=== PATIENT | female | born 1945 | race Caucasian/White ===

== ENCOUNTER → 2018-02-10 | Outpatient (CLI) | payer MEDICARE ==
--- NOTE | 2018-02-11 14:18 | MM ---
Reason for exam: screening (asymptomatic). Last mammogram was performed 2 years ago. History: Patient is postmenopausal and has history of other cancer at age 34. Family history of breast cancer in maternal aunt at age 60. Benign excisional biopsy, July 27, 2002. Benign excisional biopsy of the right breast, 1993. Excisional biopsy of the left breast. Took estrogen for 7 years beginning at age 53. Took progesterone for 7 years beginning at age 53. Physical Findings: A clinical breast exam by your physician is recommended on an annual basis and results should be correlated with mammographic findings. MG 3D Screening Mammo W/Cad Bilateral CC and MLO view(s) were taken. Prior study comparison: February 07, 2016, bilateral MG 3d screening mammo w/cad. February 02, 2015, bilateral MG screening mammo w CAD. There are scattered fibroglandular densities. Finding #1: There is a new 11 mm oval lobular mass in the upper quadrant, anterior position of the left breast. Finding #2: There are typically benign round, regional calcifications in the right breast. New finding and increase in number of calcifications but benign morphology since February 07, 2016 and February 02, 2015. ASSESSMENT: Incomplete: need additional imaging evaluation, BI-RAD 0 RECOMMENDATION: Ultrasound of the left breast. [facility] will attempt to contact patient to return for ultrasound.
== END | disposition home or self-care (01) ==
LOC: RADMAMWWP 14:34
PROVIDERS: ATTEND Internal Medicine
DX: Z12.31 Encounter for screening mammogram for malignant neoplasm of breast (principal)
CPT/HCPCS: 77063; 77067

== ENCOUNTER → 2018-02-13 | Outpatient (CLI) | payer MEDICARE ==
--- NOTE | 2018-02-13 15:03 | USB ---
Reason for exam: additional evaluation requested from abnormal screening. History: Patient is postmenopausal and has history of other cancer at age 34. Family history of breast cancer in maternal aunt at age 60. Benign excisional biopsy, July 27, 2002. Benign excisional biopsy of the right breast, 1993. Excisional biopsy of the left breast. Took estrogen for 7 years beginning at age 53. Took progesterone for 7 years beginning at age 53. Physical Findings: Nurse did not find any significant physical abnormalities on exam. US Breast Workup Limited LT Technologist: Deisy Randhawa RT (R)(M) Left limited breast ultrasound including focal area of concern, retroareolar and axilla demonstrates a 6 x 4 x 3mm oval, cystic lesion at 11 o'clock and a 11 x 6 x 7mm cystic cluster at 11 o'clock, multiple images demonstrate increase through transmission. These results were verbally communicated with the patient and result sheet given to the patient on 02/13/18. ASSESSMENT: Benign, BI-RAD 2 RECOMMENDATION: Return to routine screening mammogram schedule for both breasts.
== END | disposition home or self-care (01) ==
LOC: RADUSWWP 12:03
PROVIDERS: ATTEND Internal Medicine
DX: R92.8 Other abnormal and inconclusive findings on diagnostic imaging of breast (principal)

== ENCOUNTER → 2019-02-09 | Outpatient (CLI) | payer MEDICARE ==
--- NOTE | 2019-02-10 00:10 | XR ---
EXAMINATION TYPE: XR chest 2V DATE OF EXAM: 02/09/2019 COMPARISON: None HISTORY: 74-year-old female with cough TECHNIQUE: Frontal and lateral views FINDINGS: Heart borderline to mildly enlarged. Mild diffuse interstitial prominence is chronic appearance. No c onsolidation or pleural effusion. IMPRESSION: Borderline to mild cardiomegaly. Chronic appearing changes, possible bronchitis or asthma. Otherwise, no acute process seen.
== END | disposition home or self-care (01) ==
LOC: RADXRYALE 14:44
PROVIDERS: ATTEND Internal Medicine
DX: I51.7 Cardiomegaly (principal)
CPT/HCPCS: 71046

== ENCOUNTER → 2019-02-19 | Outpatient (CLI) | payer MEDICARE ==
--- NOTE | 2019-02-20 10:48 | MM ---
Reason for exam: screening (asymptomatic). Last mammogram was performed 1 year ago. History: Patient is postmenopausal and has history of other cancer at age 34. Family history of breast cancer in maternal aunt at age 60. Benign excisional biopsy, July 27, 2002. Benign excisional biopsy of the right breast, 1993. Excisional biopsy of the left breast. Took estrogen for 7 years beginning at age 53. Took progesterone for 7 years beginning at age 53. Physical Findings: A clinical breast exam by your physician is recommended on an annual basis and results should be correlated with mammographic findings. MG 3D Screening Mammo W/Cad Bilateral CC and MLO view(s) were taken. Prior study comparison: February 10, 2018, bilateral MG 3d screening mammo w/cad. February 07, 2016, bilateral MG 3d screening mammo w/cad. There are scattered fibroglandular densities. No significant changes when compared with prior studies. ASSESSMENT: Benign, BI-RAD 2 RECOMMENDATION: Routine screening mammogram of both breasts in 1 year.
== END | disposition home or self-care (01) ==
LOC: RADMAMWWP 14:39
PROVIDERS: ATTEND Internal Medicine
DX: Z12.31 Encounter for screening mammogram for malignant neoplasm of breast (principal)
CPT/HCPCS: 77063; 77067

== ENCOUNTER 2019-04-03 10:55 | Emergency (ER) | payer MEDICARE ==
[2019-04-03 11:05] VITALS: RESP 18; TEMP 97.9
[2019-04-03] MEDS ORDERED: SODIUM CHLORIDE 0.9% 1,000 ML IV STA (11:20)
[2019-04-03] MEDS ORDERED: KETOROLAC 30 MG/ML 1 ML VIAL IVP STA (11:20)
[2019-04-03] MEDS ORDERED: ONDANSETRON 4 MG/2 ML VIAL IVP STA (11:20)
--- NOTE | 2019-04-03 11:26 | ED ---
Abdominal Pain HPI - General Chief Complaint: Abdominal Pain Stated Complaint: Vomiting, side pain Time Seen by Provider: 04/03/19 11:07 Source: patient Mode of arrival: ambulatory Limitations: no limitations - History of Present Illness Initial Comments: Patient is a 74-year-old female with past medical history of COPD and hypertension, presenting to the emergency Department with complaints of left- sided abdominal pain, nausea, vomiting since this morning. Patient states she woke up this morning feeling fine and then had a sudden onset of left-sided abdominal pain as well as dry heaving. Patient admits to prior history of 2 C- sections and cholecystectomy. Patient states the pain is sharp, radiating into the left lower quadrant and groin area. Patient states she has never felt this pain before. Patient states history of kidney stones. Patient denies fever, chills, diarrhea. Patient's last bowel movement this morning and was normal. P atient denies urinary complaints at this time. Patient denies any other complaints. Upon arrival to ER, BP elevated at 187/96, afebrile. - Related Data Home Medications Medication Instructions Recorded Confirmed Albuterol Sulfate [Proair Hfa] 1 - 2 puff INHALATION RT-Q6H PRN 04/18/16 04/18/16 Aspirin EC [Ecotrin Low Dose] 81 mg PO DAILY 04/18/16 04/18/16 Atenolol [Tenormin] 50 mg PO DAILY 04/18/16 04/18/16 Atorvastatin [Lipitor] 20 mg PO DAILY 04/18/16 04/18/16 Levothyroxine Sodium [Synthroid] 150 mcg PO DAILY 04/18/16 04/18/16 Lisinopril [Prinivil] 5 mg PO DAILY 04/18/16 04/18/16 Nitroglycerin Sl Tabs [Nitrostat] 0.4 mg SUBLINGUAL Q5M PRN 04/18/16 04/18/16 Sertraline [Zoloft] 50 mg PO DAILY 04/18/16 04/18/16 Previous Rx's Medication Instructions Recorded Ketorolac [Toradol] 10 mg PO Q8HR #15 tab 04/03/19 Ondansetron Odt [Zofran Odt] 4 mg PO Q8HR PRN #10 tab 04/03/19 Tamsulosin [Flomax] 0.4 mg PO DAILY #7 cap 04/03/19 Allergies Allergy/AdvReac Type Severity Reaction Status Date / Time levofloxacin [From Levaquin] Allergy Unknown Verified 04/03/19 11:03 Review of Systems ROS Statement: Those systems with pertinent positive or pertinent negative responses have been documented in the HPI. ROS Other: All systems not noted in ROS Statement are negative. Past Medical History Past Medical History: COPD, Hypertension, Sleep Apnea/CPAP/BIPAP History of Any Multi-Drug Resistant Organisms: None Reported Past Surgical History: Section, Cholecystectomy, Orthopedic Surgery Additional Past Surgical History / Comment(s): thyroidectomy Past Psychological History: Depression Smoking Status: Never smoker Past Alcohol Use History: Occasional Past Drug Use History: None Reported General Exam - General Exam Comments Initial Comments: GENERAL: Well-appearing, well-nourished and in mild distress secondary to pain. HEAD: Atraumatic, normocephalic. EYES: Pupils equal round and reactive to light, extraocular movements intact, sclera anicteric, conjunctiva are normal. ENT: TMs normal, nares patent, oropharynx clear without exudates. Moist mucous membranes. NECK: Normal range of motion, supple without lymphadenopathy or JVD. LUNGS: Breath sounds clear to auscultation bilaterally and equal. No wheezes rales or rhonchi. HEART: Regular rate and rhythm without murmurs, rubs or gallops. ABDOMEN: Tender to palpation in the left lower quadrant, left side. Soft, normoactive bowel sounds. No rebound. No masses appreciated. : Deferred EXTREMITIES: Normal range of motion, no pitting or edema. No clubbing or cyanosis. NEUROLOGICAL: Cranial nerves II through XII grossly intact. Normal speech, normal gait. PSYCH: Normal mood, normal affect. SKIN: Warm, Dry, normal turgor, no rashes or lesions noted. Limitations: no limitations Course Vital Signs 04/03/19 04/03/19 11:03 14:32 Temperature 97.9 F Pulse Rate 68 99 Respiratory 18 18 Rate Blood Pressure 187/96 159/75 O2 Sat by Pulse 100 96 Oximetry Medical Decision Making - Medical Decision Making Patient is a 74-year-old female here for left side pain radiating into the left groin was sudden onset times this morning. Patient also reports nausea and vomi ting. On exam patient has tenderness of the left side and left lower quadrant. BP was elevated upon arrival, afebrile. CBC shows white count 11.5. CMP is within normal limits. Lactic acid was 3.5. Most likely due to recent vomiting as well as severe pain. UA reveals > [address] is normal. [address] of the abdomen shows a 2 mm distal left ureteral stone with partial obstruction. Mild diverticulosis without diverticulitis. Patient was given fluids, pain medication and Zofran. Patient reported improvement. Discussed with patient to increase fluid intake. She'll be discharged home with Flomax, Toradol, Zofran. Patient will follow-up with PCP on Saturday if symptoms are not resolved. Return parameters were discussed with the patient she verbalized understanding. Patient is in agreement with this plan of care. Case discussed with Dr. Gonzalez. - Lab Data Result diagrams: 04/03/19 11:25 04/03/19 11:31 Lab Results 04/03/19 04/03/19 04/03/19 Range/Units 11:25 11:31 11:31 WBC 11.5 H (3.8-10.6) k/uL RBC 4.62 (3.80-5.40) m/uL Hgb 13.7 (11.4-16.0) gm/dL Hct 40.7 (34.0-46.0) % MCV 87.9 (80.0-100.0) fL MCH 29.7 (25.0-35.0) pg MCHC 33.8 (31.0-37.0) g/dL RDW 15.0 (11.5-15.5) % Plt Count 268 (150-450) k/uL Neutrophils % 92 % Lymphocytes % 5 % Monocytes % 2 % Eosinophils % 1 % Basophils % 0 % Neutrophils # 10.5 H (1.3-7.7) k/uL Lymphocytes # 0.6 L (1.0-4.8) k/uL Monocytes # 0.2 (0-1.0) k/uL Eosinophils # 0.1 (0-0.7) k/uL Basophils # 0.0 (0-0.2) k/uL Sodium 139 (137-145) mmol/L Potassium 3.9 (3.5-5.1) mmol/L Chloride 97 L (98-107) mmol/L Carbon Dioxide 26 (22-30) mmol/L Anion Gap 16 mmol/L BUN 22 H (7-17) mg/dL Creatinine 1.07 H (0.52-1.04) mg/dL Est GFR (CKD-EPI)AfAm 59 (>60 ml/min/1.73 sqM) Est GFR (CKD-EPI)NonAf 51 (>60 ml/min/1.73 sqM) Glucose 151 H (74-99) mg/dL Lactic Ac Sepsis Rflx Plasma Lactic Acid Melecio 3.5 H* (0.7-2.0) mmol/L Calcium 9.7 (8.4-10.2) mg/dL Total Bilirubin 0.5 (0.2-1.3) mg/dL AST 33 (14-36) U/L ALT 40 (9-52) U/L Alkaline Phosphatase 109 (38-126) U/L Total Protein 8.4 H (6.3-8.2) g/dL Albumin 5.0 (3.5-5.0) g/dL Amylase 62 (30-110) U/L Lipase 104 (23-300) U/L Urine Color Urine Appearance (Clear) Urine pH (5.0-8.0) Ur Specific [place] (1.001-1.035) Urine Protein (Negative) Urine Glucose (UA) (Negative) Urine Ketones (Negative) Urine Blood (Negative) Urine Nitrite (Negative) Urine Bilirubin (Negative) Urine Urobilinogen (<2.0) mg/dL Ur Leukocyte Esterase (Negative) Urine RBC (0-5) /hpf Urine WBC (0-5) /hpf Ur Squamous Epith Cells (0-4) /hpf Urine Mucus (None) /hpf 04/03/19 04/03/19 Range/Units 11:31 12:02 WBC (3.8-10.6) k/uL RBC (3.80-5.40) m/uL Hgb (11.4-16.0) gm/dL Hct (34.0-46.0) % MCV (80.0-100.0) fL MCH (25.0-35.0) pg MCHC (31.0-37.0) g/dL RDW (11.5-15.5) % Plt Count (150-450) k/uL Neutrophils % % Lymphocytes % % Monocytes % % Eosinophils % % Basophils % % Neutrophils # (1.3-7.7) k/uL Lymphocytes # (1.0-4.8) k/uL Monocytes # (0-1.0) k/uL Eosinophils # (0-0.7) k/uL Basophils # (0-0.2) k/uL Sodium (137-145) mmol/L Potassium (3.5-5.1) mmol/L Chloride (98-107) mmol/L Carbon Dioxide (22-30) mmol/L Anion Gap mmol/L BUN (7-17) mg/dL Creatinine (0.52-1.04) mg/dL Est GFR (CKD-EPI)AfAm (>60 ml/min/1.73 sqM) Est GFR (CKD-EPI)NonAf (>60 ml/min/1.73 sqM) Glucose (74-99) mg/dL Lactic Ac Sepsis Rflx Y Plasma Lactic Acid Melecio (0.7-2.0) mmol/L Calcium (8.4-10.2) mg/dL Total Bilirubin (0.2-1.3) mg/dL AST (14-36) U/L ALT (9-52) U/L Alkaline Phosphatase (38-126) U/L Total Protein (6.3-8.2) g/dL Albumin (3.5-5.0) g/dL Amylase (30-110) U/L Lipase (23-300) U/L Urine Color Yellow Urine Appearance Clear (Clear) Urine pH 6.5 (5.0-8.0) Ur Specific [place] 1.021 (1.001-1.035) Urine Protein Trace H (Negative) Urine Glucose (UA) Negative (Negative) Urine Ketones 1+ H (Negative) Urine Blood Moderate H (Negative) Urine Nitrite Negative (Negative) Urine Bilirubin Negative (Negative) Urine Urobilinogen <2.0 (<2.0) mg/dL Ur Leukocyte Esterase Negative (Negative) Urine RBC >182 H (0-5) /hpf Urine WBC 2 (0-5) /hpf Ur Squamous Epith Cells 1 (0-4) /hpf Urine Mucus Rare H (None) /hpf Disposition Clinical Impression: Abdominal pain, Renal stone Disposition: HOME SELF-CARE Condition: Stable Instructions (If sedation given, give patient instructions): Kidney Stones (ED), Abdominal Pain (ED) Additional Instructions: Please return to the Emergency Department if symptoms worsen or any other concerns. Follow up with PCP as needed. Prescriptions: Tamsulosin [Flomax] 0.4 mg PO DAILY #7 cap Ketorolac [Toradol] 10 mg PO Q8HR #15 tab Ondansetron Odt [Zofran Odt] 4 mg PO Q8HR PRN #10 tab PRN Reason: Nausea Is patient prescribed a controlled substance at d/c from ED?: No Referrals: Clotilde Senior MD [Primary Care Provider] - 1-2 days
[2019-04-03 11:41] LABS: Basophils % (A) 0 %; Eosinophils # (A) 0.1 k/uL (0-0.7); Eosinophils % (A) 1 %; HCT 40.7 % (34.0-46.0); HGB 13.7 gm/dL (11.4-16.0); Lymphocytes # (A) 0.6 k/uL (1.0-4.8); Lymphocytes % (A) 5 %; MCH 29.7 pg (25.0-35.0); MCHC 33.8 g/dL (31.0-37.0); MCV 87.9 fL (80.0-100.0); Mean Platelet Volume 6.8; Monocytes # (A) 0.2 k/uL (0-1.0); Monocytes % (A) 2 %; Neutrophils # (A) 10.5 k/uL (1.3-7.7); Neutrophils % (A) 92 %; Platelet Count 268 k/uL (150-450); RBC 4.62 m/uL (3.80-5.40); WBC 11.5 k/uL (3.8-10.6)
[2019-04-03 11:55] LABS: Calcium 9.7 mg/dL (8.4-10.2); Potassium 3.9 mmol/L (3.5-5.1); Total Bilirubin 0.5 mg/dL (0.2-1.3); Total Protein 8.4 g/dL (6.3-8.2)
[2019-04-03 12:15] LABS: Appearance,Urine Clear (Clear); Bilirubin,Urine Negative (Negative); Blood,Urine Moderate (Negative); Color,Urine Yellow; Glucose,Urine (UA) Negative (Negative); Ketones,Urine 1+ (Negative); Leukocyte Esterase,Urine Negative (Negative); Mucus,Urine Rare /hpf; Nitrite,Urine Negative (Negative); PH, Urine 6.5 (5.0-8.0); Protein,Urine Trace (Negative); RBC,Urine >182 /hpf (0-5); Specific Gravity,Urine 1.021 (1.001-1.035); Squamous Epithelial Cell,Urine 1 /hpf (0-4); Urobilinogen,Urine <2.0 mg/dL (<2.0)
--- NOTE | 2019-04-03 12:43 | CT ---
EXAMINATION TYPE: CT abdomen pelvis wo con DATE OF EXAM: 04/03/2019 COMPARISON: None INDICATION: Left flank and abdominal pain. DLP: 985.7 mGycm, Automated exposure control for dose reduction was used. CONTRAST: 0 mL of Isovue 300. Study performed without Oral Contrast TECHNIQUE: Axial images were obtained from above the diaphragm to the pubic rami in the axial plane a t 5 mm thick sections. Reconstructed images are reviewed on the computer in the coronal plane. FINDINGS: Some vague mid mesentery inflammatory type changes present, example image [address] sections are obtained the lung bases. The lung bases are clear. CT ABDOMEN: Liver: Normal Spleen: Normal Pancreas: Normal Adrenal glands: The adrenal glands are normal. Gallbladder: Normal Kidneys: No masses are evident. No hydronephrosis is present. No cysts are present. No renal stone s are evident. Aorta: Vascular calcification is within the aorta. Inferior vena cava: Normal. CT PELVIS: Loops of bowel within the abdomen and pelvis are normal. This study is performed without oral con trast limiting bowel evaluation. Appendix: Normal as visualized. Urinary bladder: Normal. Genitourinary structures: Uterus is unremarkable. Adnexal regions are clear. Osseous structures: No suspicious lytic or sclerotic lesions. IMPRESSIONS: 1. Some minimal nonspecific inflammatory change may be within the mid mesentery. 2. CT abdomen and pelvis without contrast is otherwise unremarkable.
[2019-04-03] MEDS ORDERED: MORPHINE SULFATE 4 MG/ML SYRINGE IVP STA (14:25)
--- NOTE | 2019-04-03 14:31 | CT ---
EXAMINATION TYPE: CT abdomen pelvis w con DATE OF EXAM: 04/03/2019 COMPARISON: 04/03/2019 earlier exam INDICATION: Pain, vomiting DLP: 1612.5 mGycm, Automated exposure control for dose reduction was used. CONTRAST: 80 mL of Isovue 300. Study performed without Oral Contrast TECHNIQUE: Axial images were obtained from above the diaphragm to the pubic rami in the axial plane a t 5 mm thick sections. Reconstructed images are reviewed on the computer in the coronal plane. FINDINGS: Previous inflammatory changes within the mid mesentery are less apparent on the current exa m. Limited CT sections are obtained the lung bases. The lung bases are clear. CT ABDOMEN: Liver: Normal Spleen: Normal Pancreas: Normal Adrenal glands: The adrenal glands are normal. Gallbladder: Normal Kidneys: No masses are evident. No hydronephrosis is present. Left ureter appears more prominent hipolito n previous. There is delayed excretion on the left into the renal calyces and infundibula from the pr ior study. There is mild left hydroureter. This extends into the pelvis. Within the pelvis there is a 0 point 0.2 cm partially obstructing distal ureteral stone. As best visualized series 202 image 73. No cysts are present. Delayed images were obtained through the kidneys, which remain unremarkable. Aorta: Vascular calcification is within the aorta. Inferior vena cava: Normal. CT PELVIS: Loops of bowel within the abdomen and pelvis are normal. Study is performed without oral contrast limiting bowel evaluation a few diverticuli are through the sigmoid colon. Appendix: . Urinary bladder: Normal. Genitourinary structures: Uterus is normal. Adnexal regions are clear. Osseous structures: No suspicious lytic or sclerotic lesions. IMPRESSIONS: 1. A 0.5 x 0.2 distal left ureteral stone with partial left hydroureter without hydronephrosis. There is delayed excretion on the left compared to the right. 2. Mid mesenteric inflammatory changes appear diminished from comparison. 3. Mild diverticulosis without acute diverticulitis in the sigmoid colon.
[2019-04-03 14:34] VITALS: BP 159/75; PULSE 99
== END 2019-04-03 15:23 | disposition home or self-care (01) ==
LOC: EC 10:55
DX: N20.2 Calculus of kidney with calculus of ureter (principal); K57.30 Diverticulosis of large intestine without perforation or abscess without bleeding; J44.9 Chronic obstructive pulmonary disease, unspecified; I10 Essential (primary) hypertension; G47.30 Sleep apnea, unspecified; F32.9 Major depressive disorder, single episode, unspecified; Z88.1 Allergy status to other antibiotic agents; Z79.82 Long term (current) use of aspirin; Z79.890 Hormone replacement therapy; Z79.899 Other long term (current) drug therapy; Z90.49 Acquired absence of other specified parts of digestive tract; E89.0 Postprocedural hypothyroidism; Z99.89 Dependence on other enabling machines and devices
CPT/HCPCS: 36415; 80053; 82150; 83605; 83690; 85025; 81001; 74176; 74177; 99284; 96374; 96375 ×2; 96361; J2270; J2405; J1885; Q9967

== ENCOUNTER → 2020-08-11 | Outpatient (CLI) | payer MEDICARE ==
--- NOTE | 2020-08-12 12:59 | MM ---
Reason for exam: screening (asymptomatic). Last mammogram was performed 1 year and 6 months ago. History: Patient is postmenopausal and has history of other cancer at age 34. Family history of breast cancer in maternal aunt at age 60. Benign excisional biopsy, July 27, 2002. Benign excisional biopsy of the right breast, 1993. Excisional biopsy of the left breast. Took estrogen for 7 years beginning at age 53. Took progesterone for 7 years beginning at age 53. Physical Findings: A clinical breast exam by your physician is recommended on an annual basis and results should be correlated with mammographic findings. MG 3D Screening Mammo W/Cad Bilateral CC and MLO view(s) were taken. Prior study comparison: February 19, 2019, bilateral MG 3d screening mammo w/cad. February 10, 2018, bilateral MG 3d screening mammo w/cad. There are scattered fibroglandular densities. No significant changes when compared with prior studies. ASSESSMENT: Benign, BI-RAD 2 RECOMMENDATION: Routine screening mammogram of both breasts in 1 year.
== END | disposition home or self-care (01) ==
LOC: RADMAMWWP 13:03
PROVIDERS: ATTEND Internal Medicine
DX: Z12.31 Encounter for screening mammogram for malignant neoplasm of breast (principal)
CPT/HCPCS: 77063; 77067

== ENCOUNTER → 2021-10-11 | Outpatient (CLI) | payer MEDICARE ==
--- NOTE | 2021-10-12 11:02 | MM ---
Reason for exam: screening (asymptomatic). Last mammogram was performed 1 year and 2 months ago. History: Patient is postmenopausal and has history of other cancer at age 75. Family history of breast cancer in maternal aunt at age 60. Benign excisional biopsy, July 27, 2002. Benign excisional biopsy of the right breast, 1993. Excisional biopsy of the left breast. Took estrogen for 7 years beginning at age 53. Took progesterone for 7 years beginning at age 53. Physical Findings: A clinical breast exam by your physician is recommended on an annual basis and results should be correlated with mammographic findings. MG 3D Screening Mammo W/Cad Bilateral CC and MLO view(s) were taken. Prior study comparison: August 11, 2020, bilateral MG 3d screening mammo w/cad. February 19, 2019, bilateral MG 3d screening mammo w/cad. The breast tissue is heterogeneously dense. This may lower the sensitivity of mammography. Benign appearing bilateral calcifications. No significant changes when compared with prior studies. ASSESSMENT: Benign, BI-RAD 2 RECOMMENDATION: Routine screening mammogram of both breasts in 1 year.
== END | disposition home or self-care (01) ==
LOC: RADMAMWWP 13:56
PROVIDERS: ATTEND Internal Medicine
DX: Z12.31 Encounter for screening mammogram for malignant neoplasm of breast (principal)
CPT/HCPCS: 77063; 77067

== ENCOUNTER 2022-07-18 08:31 | Day surgery (SDC) | payer MEDICARE ==
[2022-07-13 15:04] VITALS: BMI 35.6
[~2022-07-18 08:31] MED LIST: LACTATED RINGERS 1,000 ML IV SCH; LIDOCAINE 1% (10MG/ML) FOR IV START INTRADERMA PRN; MOXIFLOXACIN HCL 0.5% DROPS 3 ML BTL OP PRN; TETRACAINE 0.5% OPHTH (PF) DROPS 4 ML BTL OP PRN; TIMOLOL 0.5% OPHTH DROPS 5 ML BTL OP PRN
[2022-07-18] MEDS: CYCLOPENTOLATE 1% OPHTH SOLN 2 ML BTL OP PRN ×3 (09:25→09:37)
[2022-07-18] MEDS: PHENYLEPHRINE 2.5% OPHTH DRP 2ML OP PRN ×3 (09:28→09:40)
[2022-07-18 09:37] VITALS: RESP 16; TEMP 97.1
[2022-07-18] MEDS ORDERED: MIDAZOLAM 2 MG/2 ML VIAL ONE (10:11)
[2022-07-18] MEDS ORDERED: fentaNYL (PF) 50 MCG/ML 2 ML AMP ONE (10:11)
[2022-07-18] MEDS ORDERED: EPINEPHrine (PF) 0.3 ML in BALANCED SALT IRRIG SOLN COMB2 500 ML IRRIGATION ONE (10:22)
[2022-07-18] MEDS ORDERED: HYALURONATE SODIUM INTRAOCULAR 1 EACH SYRINGE (12MG/ML) INTRAOCULA ONE (10:23)
[2022-07-18] MEDS ORDERED: LIDOCAINE 1% (PF) 10MG/ML VIAL MISCELLANE ONE (10:24)
[2022-07-18] MEDS ORDERED: BALANCED SALT IRRIG SOLN COMB2 15 ML IRRIG.SOLN INTRAOCULA ONE (10:24)
--- NOTE | 2022-07-18 10:54 | P.OP ---
Date of Procedure: 07/18/22 Preoperative Diagnosis: NS & CS Postoperative Diagnosis: same Procedure(s) Performed: PIOL< OS Implants: [id number] 19.00 & [id number] Anesthesia: MAC Surgeon: Shayne Looney Pathology: none sent Condition: stable Disposition: same day Indications for Procedure: blurry vision Operative Findings: zonular dehissence,
[2022-07-18 11:16] VITALS: BP 140/71; PULSE 75
--- NOTE | 2022-07-19 17:14 | OP ---
OPERATIVE REPORT PROCEDURES PERFORMED: Phacoemulsification of cataract and intraocular lens implant of the left eye. PREOPERATIVE DIAGNOSES: 1. Nuclear sclerosis. 2. Cortical sclerosis. 3. Regular astigmatism. POSTOPERATIVE DIAGNOSES: 1. Nuclear sclerosis. 2. Cortical sclerosis. 3. Regular astigmatism. ANESTHESIA: Topical. ESTIMATED BLOOD LOSS: None. SPECIMEN TAKEN: None. NARRATIVE: After obtaining the appropriate consent, the patient was brought to the operating room. There, she was asked to sit upright, and the axes 0 and 180 degrees were identified and marked with a gentian daphney marker. She was then placed in the proper supine position under cardiac monitoring and prepped and draped in the usual sterile manner. She was approached from her left temporal side. Using previously acquired corneal topography information, the axis of 32 degrees was identified and marked with the Levlr axis marker. At the 5 o'clock position, an MVR blade was used to create a paracentesis port. Through this opening, 1% Xylocaine MPF 50:50 mix with balanced salt solution was injected into the anterior chamber. This was followed by Amvisc to stabilize the anterior chamber. At the 3 o'clock position, a 2.5 mm keratome was used to create a self-sealing corneal flap incision. Through this opening, a cystotome was introduced to begin a continuous tear capsulorrhexis. This was completed using the Utrata forceps. Hydrodissection and hydrodelineation of the lens were accomplished with balanced salt solution. Phacoemulsification of the lens utilizing phaco chop was accomplished in 13.11 seconds at 15% power. Additional Xylocaine MPF was instilled into the anterior chamber. This was followed by removal of the remaining cortical material under irrigation and aspiration as well as careful polishing of the posterior capsule in the capsule vacuum mode. Additional Amvisc was then used to stabilize the capsular bag, and an Shayan [id number], 19.0 diopter posterior chamber intraocular lens was then inserted into the capsular bag. Deployment was not in the normal orientation, and the lens had to be manipulated to correctly orient the haptics in the proper clockwise fashion. Additionally, during manipulating the lens, the lead haptic was stuck to the anterior surface of the implant and took additional manipulation in order to ensure proper centration of the implant itself. During the course of the manipulation and attempting to rotate the lens with the 32-degree nanci on the patient's cornea, it was appreciated that there was some zonular dehiscence between about 10 o'clock and 12 o'clock in the patient's eye. Therefore, it was decided to ensure proper centration. A capsular tension ring of 13 mm was to be used to facilitate long-term centration. Some difficulties were encountered with deploying the capsular tension ring due to the haptics which were already at the equator of the lens bag. However, once finally deployed, the lens optic as well as the anterior capsulorrhexis appeared to center up appropriately. Final adjustments of the intraocular lens were brought into alignment at 32 degrees with the nanci on the patient's cornea. At this point, the remaining viscoelastic was removed from in and around the intraocular lens as well as the anterior chamber. One final touchup of the optic and gentle tamponading of the implant against the posterior capsule ensured stability as the tip of the irrigation and aspiration unit was removed. The eye was then brought to normal intraocular pressure through the paracentesis port with balanced salt solution, and to ensure watertight integrity postoperatively, Tisseel was used over the 2 corneal wounds used for surgery. The patient then received 2 drops of 0.5% timolol followed by 2 drops of 0.5% moxifloxacin. She was then lightly patched and shielded in the usual manner. There were no complications from the procedure. She tolerated the procedure well and was returned to outpatient recovery in good condition. DONAVON / AURA: [id number] /
== END 2022-07-18 11:36 | disposition home or self-care (01) ==
LOC: OR 08:31
PROVIDERS: ATTEND Ophthalmology
DX: H25.12 Age-related nuclear cataract, left eye (principal); H52.222 Regular astigmatism, left eye; I10 Essential (primary) hypertension; F32.A Depression, unspecified; E78.5 Hyperlipidemia, unspecified; E03.9 Hypothyroidism, unspecified; G47.30 Sleep apnea, unspecified; Z90.89 Acquired absence of other organs; Z96.652 Presence of left artificial knee joint; Z79.890 Hormone replacement therapy; Z98.890 Other specified postprocedural states; Z79.84 Long term (current) use of oral hypoglycemic drugs; Z79.899 Other long term (current) drug therapy; Z79.01 Long term (current) use of anticoagulants
CPT/HCPCS: 66984; V2787; C1780; C1762; J2250; J0171; J3010; J2001

== ENCOUNTER 2022-08-01 09:12 | Day surgery (SDC) | payer MEDICARE ==
[2022-07-27 12:55] VITALS: BMI 35.6
[~2022-08-01 09:12] MED LIST changes: -LIDOCAINE 1% (10MG/ML) FOR IV START INTRADERMA PRN
[2022-08-01] MEDS: CYCLOPENTOLATE 1% OPHTH SOLN 2 ML BTL OP PRN ×3 (10:09→10:32)
[2022-08-01] MEDS: PHENYLEPHRINE 2.5% OPHTH DRP 2ML OP PRN ×3 (10:13→10:36)
[2022-08-01 10:46] VITALS: TEMP 97.7
[2022-08-01] MEDS ORDERED: fentaNYL (PF) 50 MCG/ML 2 ML AMP ONE (11:02)
[2022-08-01] MEDS ORDERED: MIDAZOLAM 2 MG/2 ML VIAL ONE (11:02)
[2022-08-01] MEDS ORDERED: HYALURONATE SODIUM INTRAOCULAR 1 EACH SYRINGE (12MG/ML) INTRAOCULA ONE (11:20)
[2022-08-01] MEDS ORDERED: LIDOCAINE 1% (PF) 10MG/ML VIAL SQ ONE (11:21)
[2022-08-01] MEDS ORDERED: BALANCED SALT IRRIG SOLN COMB2 15 ML IRRIG.SOLN INTRAOCULA ONE (11:21)
[2022-08-01] MEDS ORDERED: EPINEPHrine (PF) 0.3 ML in BALANCED SALT IRRIG SOLN COMB2 500 ML IRRIGATION ONE (11:21)
--- NOTE | 2022-08-01 11:34 | P.OP ---
Date of Procedure: 08/01/22 Preoperative Diagnosis: NS Postoperative Diagnosis: same Procedure(s) Performed: PIOL, OD Implants: [id number] 18.00 Anesthesia: MAC Surgeon: Shayne Looney Pathology: none sent Condition: stable Disposition: same day Indications for Procedure: blurry vision Operative Findings: no complications
[2022-08-01 11:44] VITALS: RESP 16
[2022-08-01 11:52] VITALS: BP 137/75; PULSE 69
--- NOTE | 2022-08-02 00:15 | OP ---
OPERATIVE REPORT PREOPERATIVE DIAGNOSIS: Nuclear sclerosis. POSTOPERATIVE DIAGNOSIS: Nuclear sclerosis. OPERATION: Phacoemulsification of cataract and intraocular lens implant of the right eye. ESTIMATED BLOOD LOSS: Zero. SPECIMEN TAKEN: None. NARRATIVE: After obtaining the appropriate consent, the patient was brought to the operating room where the patient was placed under cardiac monitoring and prepped and draped in the usual sterile manner. At the 11 o'clock position, a 15-degree super sharp blade was used to create a paracentesis followed by instillation of 1% Xylocaine MPF 50:50 mix with BSS into the anterior chamber. This was followed by Amvisc viscoelastic to stabilize the anterior chamber. At the 9 o'clock position a self-sealing corneal flap incision was created using 2.8 mm alex keratome. A cystotome was used to initiate a continuous tear capsulorrhexis which was completed with the Utrata forceps. A Binkhorst cannula was used to hydrodissect the lens nucleus followed by hydrodelineation. Phacoemulsification of the lens was performed utilizing phaco-chop in 18.73 seconds at 9% power. The remaining cortical material was removed using the irrigation aspiration mode followed by additional 1% Xylocaine MPF into the anterior chamber followed by viscoelastic to stabilize the capsular bag. Shayan Acrysof Vivity Model QEH728, 18 diopter posterior chamber intraocular lens was placed into the capsular bag without difficulty. The remaining viscoelastic material was removed from the anterior chamber with the irrigation/aspiration. Balanced salt solution was used to normalize the intraocular pressure. The incision was checked for watertight integrity. The patient then received 2 drops of 0.5% timolol followed by 2 drops Vigamox, was lightly patched and shielded in the usual manner. There were no complications from the procedure. The patient tolerated the procedure well and was returned to recovery in good condition. MMODL / IJN: [id number] /
== END 2022-08-01 12:16 | disposition home or self-care (01) ==
LOC: OR 09:12
PROVIDERS: ATTEND Ophthalmology
DX: H25.11 Age-related nuclear cataract, right eye (principal); I10 Essential (primary) hypertension; E78.5 Hyperlipidemia, unspecified; F32.A Depression, unspecified; E07.9 Disorder of thyroid, unspecified; H00.026 Hordeolum internum left eye, unspecified eyelid; H00.023 Hordeolum internum right eye, unspecified eyelid; H35.372 Puckering of macula, left eye; G47.33 Obstructive sleep apnea (adult) (pediatric); H43.393 Other vitreous opacities, bilateral; Z48.810 Encounter for surgical aftercare following surgery on the sense organs; Z96.1 Presence of intraocular lens
CPT/HCPCS: 66984; V2632; J2250; J0171; J3010; J2001

== ENCOUNTER → 2023-03-12 | Outpatient (CLI) | payer MEDICARE ==
--- NOTE | 2023-03-13 23:34 | MM ---
Reason for Exam: Screening (asymptomatic). Last mammogram was performed 1 year(s) and 5 month(s) ago. Patient History: Menarche at age 11. First Full-Term at age 24. Postmenopausal. Other cancer, age 75. Estrogen, starting at age 53 for 7 years. Progesterone, starting at age 53 for 7 years. 1994, Benign Excisional Biopsy on the right side. Excisional Biopsy on the Left side. Benign Excisional Biopsy. Maternal aunt had breast cancer, age 60. Risk Values: Lourdes 5 year model risk: 2.8%. NCI Lifetime model risk: 4.7%. Prior Study Comparison: 02/19/2019 Bilateral Screening Mammogram, [facility]. 08/11/2020 Bilateral Screening Mammogram, [facility]. 10/11/2021 Bilateral Screening Mammogram, [facility]. Tissue Density: There are scattered fibroglandular densities. Findings: Analyzed By CAD. Unchanged post excisional distortion upper outer quadrant right breast. Small area of asymmetric density central left cc view at a middle depth also remains unchanged. Scattered small benign oil cyst calcifications. There is no suspicious group of microcalcifications or new suspicious mass in either breast. Overall Assessment: Benign, BI-RAD 2 Management: Screening Mammogram of both breasts in 1 year. . Patient should continue monthly self-breast exams. A clinical breast exam by your physician is recommended on an annual basis. This exam should not preclude additional follow-up of suspicious palpable abnormalities. Note on Lourdes scores and lifetime risk: 1. A Lourdes score greater than 3% is considered moderate risk. If this is the case, consider specialist referral to assess eligibility for a risk reducing agent. 2. If overall lifetime risk for the development of breast cancer is 20% or higher, the patient may qualify for future screening with alternating mammogram and breast MRI. Electronically signed and approved by: Shama Franklin M.D. Radiologist
== END | disposition home or self-care (01) ==
LOC: RADMAMWWP 12:56
PROVIDERS: ATTEND Internal Medicine
DX: Z12.31 Encounter for screening mammogram for malignant neoplasm of breast (principal); Z78.0 Asymptomatic menopausal state; Z80.3 Family history of malignant neoplasm of breast
CPT/HCPCS: 77063; 77067

== ENCOUNTER 2024-03-04 06:41 | Day surgery (SDC) | payer MEDICARE ==
--- NOTE | 2024-03-02 11:16 | P.HPOR ---
History of Present Illness H&P Date: 03/02/24 Subjective:. This is a 79 year old female that presents today for initial evaluation regarding a 2 year history of a dorsal left middle finger soft tissue mass. She states she first noticed it 2 years ago and she had it aspirated and injected by an outside physician. She states it quickly came back after the aspiration. She finds it to be more of an annoyance and often bumps it and finds that it gets in the way with daily activities. She denies any injury or inciting ev ent. She denies any numbness or tingling. Physical Examination: LUE: AIN/PIN/Radial/Ulnar/Median motor intact. Radial/Ulnar/Median SILT. 2+/4 Radial/Ulnar pulses palpated. 5/5 APB, 5/5 FDI. Negative Finkelsteins, negative CMC grind, negative Durkan's compression. 5 mm round mobile soft tissue mass present over dorsal aspect of the middle finger just proximal to the PIP joint. The mass appears to be superficial to the extensor tendon Imaging: X-Rays of the left middle finger. 2 view taken in the office today demonstrate no acute fracture. Mild osteoarthritic changes in the PIP joint. Impression: 1.) Left middle finger soft tissue mass, subcutaneous. Plan: Diagnosis and treatment options were discussed with the patient. We discussed continued observation versus left middle finger soft tissue mass excision. Due to it becoming more of an annoyance she wishes to proceed with a left middle finger soft tissue mass excision. She would like to have this performed under a straight local anesthetic. Risks and benefits of surgery including bleeding, infection, damage to surrounding tissue, need for further surgery, recurrence, residual numbness were discussed and the patient wished to go forward with surgery. The patient was agreeable with this plan. CC: Clotilde Senior MD -Eusebio Crain DO Orthopedic Hand/Upper Extremity Surgeon Past Medical History Past Medical History: COPD, Hypertension, Sleep Apnea/CPAP/BIPAP Additional Past Medical History / Comment(s): CATARACTS History of Any Multi-Drug Resistant Organisms: None Reported Past Surgical History: Section, Cholecystectomy, Orthopedic Surgery Additional Past Surgical History / Comment(s): thyroidectomy Past Anesthesia/Blood Transfusion Reactions: No Reported Reaction Smoking Status: Never smoker - Past Family History Mother Family Medical History: No Reported History Medications and Allergies Home Medications Medication Instructions Recorded Confirmed Type Atorvastatin [Lipitor] 20 mg PO HS 04/18/16 07/27/22 History Sertraline [Zoloft] 50 mg PO DAILY 04/18/16 07/27/22 History Acetaminophen [Tylenol Arthritis] 650 mg PO DIRECTED PRN 07/13/22 08/01/22 History Albuterol Inhaler [Ventolin Hfa 1 - 2 puff INHALATION DIRECTED 07/13/22 08/01/22 History Inhaler] PRN Cetirizine HCl [Zyrtec] 10 mg PO HS 07/13/22 07/27/22 History Levothyroxine Sodium [Synthroid] 175 mcg PO DAILY 07/13/22 07/27/22 History Multivit-Min/Iron/Folic/Lutein 1 each PO DAILY 07/13/22 08/01/22 History [Centrum Silver Women Tablet] hydroCHLOROthiazide 25 mg PO DAILY 07/13/22 08/01/22 History lisinopriL [Zestril] 10 mg PO DAILY 07/13/22 07/27/22 History Allergies Allergy/AdvReac Type Severity Reaction Status Date / Time levofloxacin [From Levaquin] Allergy painful Verified 08/01/22 09:51 tendon Physical Examination Osteopathic Statement: *. No significant issues noted on an osteopathic structural exam other than those noted in the History and Physical/Consult.
[2024-03-02 15:48] VITALS: BMI 34.9
[~2024-03-04 06:41] MED LIST changes: -LACTATED RINGERS 1,000 ML IV SCH; -MOXIFLOXACIN HCL 0.5% DROPS 3 ML BTL OP PRN; +Pre Op ABX Message 1 EACH MISC MISCELLANE ONE; -TETRACAINE 0.5% OPHTH (PF) DROPS 4 ML BTL OP PRN; -TIMOLOL 0.5% OPHTH DROPS 5 ML BTL OP PRN
[2024-03-04 07:04] VITALS: TEMP 97.1
[2024-03-04] MEDS: IV FLUID CONTINUATION 1,000 ML IV ONE (07:06)
[2024-03-04] MEDS ORDERED: LACTATED RINGERS 1,000 ML IV SCH (07:15)
[2024-03-04 08:27] VITALS: RESP 16
--- NOTE | 2024-03-04 08:31 | P.OP ---
Date of Procedure: 03/04/24 Preoperative Diagnosis: Left middle finger soft tissue mass Postoperative Diagnosis: Left middle finger soft tissue mass Procedure(s) Performed: Left middle finger soft tissue mass excision, 5x5mm, subcutaneous Anesthesia: local Surgeon: Eusebio Crain Mold Tooler #1: Petros Griffith Pathology: none sent Condition: stable Disposition: PACU Description of Procedure: This is a 79 year old female who presents today for a left middle finger soft tissue mass excision. Risks and benefits of surgery were discussed with the patient including bleeding, damage to surrounding tissue, infection, need for further surgery as well as risks of anesthesia including pulmonary embolism and even and the patient wished to proceed with surgical intervention. The patient was seen in the pre-operative area by myself. Consent and H&P were completed and updated. The correct extremity was marked in the pre-operative area by myself and all other questions were answered. Operative Narrative: The patient was brought to the operating room and they remained on the port able stretcher and a rolling hand table was brought to the side of the operative extremity. Pre-operative time out was performed indicating the correct patient, procedure and laterality. All in the room agreed. Digital block was performed in the Pre-Op area prior to entering the OR with 7cc's of 0.5% Lidocaine and 1% lidocaine in a 50:50 mixture. A nonsterile tourniquet was then applied to the op erative extremity and the left upper extremity was then prepped and draped in normal sterile fashion. The operative extremity was the exsanguinated with an esmarch bandage and the tourniquet was inflated to 250mmHg. Longitudinal incision was made over the mass on the dorsal aspect overlying the proximal phalanx of the middle finger. Blunt dissection was taken through subcutaneous tissues with tenotomy scissors. There was a 5x5mm round mobile, clear gelatinous mass adhered to the dorsal extensor tendon. This was carefully excised successfully, the extensor tendon was protected throughout the case. Skin closure was then performed with 4-0 nylon suture. Soft dressing with adaptic, 4x4s, cast padding and nikita wrap was applied. The patient was then transferred to PACU in stable condition. Petros MCGRATH was present to assist in retraction. Eusebio Crain D.O. Orthopedic Hand/Upper Extremity Surgeon
[2024-03-04 08:48] VITALS: BP 152/79; PULSE 71
== END 2024-03-04 08:56 | disposition home or self-care (01) ==
LOC: OR 06:41
PROVIDERS: ATTEND Orthopaedic Surgery Hand Surgery
DX: R22.32 Localized swelling, mass and lump, left upper limb (principal); J44.9 Chronic obstructive pulmonary disease, unspecified; I10 Essential (primary) hypertension; G47.30 Sleep apnea, unspecified; Z79.890 Hormone replacement therapy; Z90.49 Acquired absence of other specified parts of digestive tract; Z90.89 Acquired absence of other organs; Z88.1 Allergy status to other antibiotic agents; Z79.51 Long term (current) use of inhaled steroids; Z79.899 Other long term (current) drug therapy

== ENCOUNTER → 2024-05-12 | Outpatient (CLI) | payer MEDICARE ==
--- NOTE | 2024-05-13 09:29 | MM ---
Reason for Exam: Screening (asymptomatic). Last mammogram was performed 1 year(s) and 2 month(s) ago. Patient History: Menarche at age 11. First Full-Term at age 24. Postmenopausal. Other cancer, age 75. Estrogen, starting at age 53 for 7 years. Progesterone, starting at age 53 for 7 years. 1994, Benign Excisional Biopsy on the right side. Excisional Biopsy on the Left side. Benign Excisional Biopsy. Maternal aunt had breast cancer, age 60. Risk Values: Lourdes 5 year model risk: 2.7%. NCI Lifetime model risk: 4.2%. Prior Study Comparison: 08/11/2020 Bilateral Screening Mammogram, [facility]. 10/11/2021 Bilateral Screening Mammogram, [facility]. 03/12/2023 Bilateral MG 3D screening mammo w/cad, [facility]. Tissue Density: The breasts are heterogeneously dense, which may obscure small masses. Findings: Analyzed By CAD. There is no suspicious group of microcalcifications or new suspicious mass in either breast. Overall Assessment: Benign, BI-RAD 2 Management: Screening Mammogram of both breasts in 1 year. . Patient should continue monthly self-breast exams. A clinical breast exam by your physician is recommended on an annual basis. This exam should not preclude additional follow-up of suspicious palpable abnormalities. Note on Lourdes scores and lifetime risk: 1. A Lourdes score greater than 3% is considered moderate risk. If this is the case, consider specialist referral to assess eligibility for a risk reducing agent. 2. If overall lifetime risk for the development of breast cancer is 20% or higher, the patient may qualify for future screening with alternating mammogram and breast MRI. [facility], , 05/13/2024 9:26 AM. Electronically signed and approved by: Bogdan Morrow M.D. Radiologis
== END | disposition home or self-care (01) ==
LOC: RADMAMWWP 13:48
PROVIDERS: ATTEND Internal Medicine
CPT/HCPCS: 77063; 77067

== ENCOUNTER 2024-08-04 06:17 | Day surgery (SDC) | payer MEDICARE ==
[2024-07-31 13:57] VITALS: BMI 33.8
[~2024-08-04 06:17] MED LIST changes: +LIDOCAINE 1% (10MG/ML) FOR IV START INTRADERMA PRN; -Pre Op ABX Message 1 EACH MISC MISCELLANE ONE
[2024-08-04 06:49] VITALS: TEMP 97
[2024-08-04] MEDS: LACTATED RINGERS 1,000 ML IV SCH (06:52)
[2024-08-04] MEDS ORDERED: PROPOFOL 10 MG/ML 20 ML VIAL IV ONE (07:26)
--- NOTE | 2024-08-04 07:46 | P.PCN ---
Date of Procedure: 08/04/24 Procedure(s) Performed: Brief history: Patient is a pleasant 79-year-old white female scheduled for an elective upper endoscopy as well as colonoscopy as a part of evaluation of abdominal pain, intermittent nausea and change in bowel habits for the last 6 months duration Procedure performed: Esophagogastroduodenoscopy with biopsy Colonoscopy with snare polypectomy Preoperative diagnosis: Abdominal pain/intermittent nausea Change in bowel habits Anesthesia: MAC Procedure: After informed consent was obtained from the patient was brought into the endoscopy unit and IV sedation was administered by anesthesia under continuous monitoring. Initially upper endoscopy was done. The Olympus GF 160 video endoscope was inserted inserted into the mouth and esophagus intubated without any difficulty and was gradually advanced into the stomach and duodenum and carefully examined. The bulb and second part of the duodenum appeared normal. Biopsies were done from the duodenum rule out celiac disease. The scope was then withdrawn into the stomach adequately insufflated with air and upon careful examination the antrum had mild diffuse antral gastritis and biopsies were done from this area. Mucosa of the body, cardia and fundus appeared normal. The scope was then withdrawn into the esophagus. The GE junction was located at 40 cm to the incisors. It appeared regular with no erythema erosions or ulcerations. Rest of the esophagus appeared normal. These were done from the distal esophagus. Patient tolerated the procedure well. At this time the patient continued to remain sedation. Initial digital rectal examination was normal. Olympus CF 160 video colonoscope was then inserted into the rectum and gradually advanced to the cecum without any difficulty. Careful examination was performed as the scope was gradually being withdrawn. The prep was excellent. The cecum, had a 3 mm polyp that was removed by cold snare polypectomy. In the ascending colon there was an 8 mm polyp removed by cold snare polypectomy. Rest of the ascending colon, transverse colon, descending colon, sigmoid colon and rectum appeared normal. Retroflexion was performed in the rectum and no lesions were noted. Sigmoid diverticulosis. Patient tolerated the procedure well. Impression: 1. Upper endoscopy revealed mild diffuse antral gastritis but no ulcer or esophagitis or peptic ulcer disease 2. Colonoscopy revealed: Small cecal polyp status post cold snare polypectomy 8 mm ascending colon polyp status post cold snare polypectomy Moderate sigmoid diverticulosis Recommendations: Findings of this examination were discussed with the patient as well as her family. She was advised to follow-up with the biopsy results. Follow-up in the office in 2 weeks.
[2024-08-04 08:10] VITALS: BP 127/67; PULSE 60; RESP 18
== END 2024-08-04 08:26 | disposition home or self-care (01) ==
LOC: ORWHC2ENDO 06:17
PROVIDERS: ATTEND Internal Medicine Gastroenterology
DX: D12.0 Benign neoplasm of cecum (principal); D12.2 Benign neoplasm of ascending colon; K57.30 Diverticulosis of large intestine without perforation or abscess without bleeding; K29.50 Unspecified chronic gastritis without bleeding; K21.9 Gastro-esophageal reflux disease without esophagitis; I10 Essential (primary) hypertension; E78.5 Hyperlipidemia, unspecified; G47.33 Obstructive sleep apnea (adult) (pediatric); J44.9 Chronic obstructive pulmonary disease, unspecified; E07.9 Disorder of thyroid, unspecified; F32.A Depression, unspecified; Z79.890 Hormone replacement therapy; Z79.899 Other long term (current) drug therapy; Z91.048 Other nonmedicinal substance allergy status
CPT/HCPCS: 45385; 43239; J2704; 88305